=== PATIENT | male | born 1955 ===

== ENCOUNTER 2016-08-30 16:44 | Emergency (ER) | payer OTHER ==
[2016-08-30 17:48] VITALS: BP 140/58
--- NOTE | 2016-08-30 17:51 | UC ---
Lower Extremity/Ankle HPI - HPI Summary HPI Summary: pt presents with c/o right lower leg swelling and tenderness. Pt reports that on 08/25/16 he was stacking wood and a large log rolled down from ~ 6 feet above him and knocked him over, rolled from his lower extremity to his abdomen. Pt was wearing long pants, shirt and work boots. Pt reports that right lower extremity has become increasingly tender and swollen. pt has been applying ice and elevating as able. also c/o of erythematous circular blistered area on right medial anterior corbett. - History of Current Complaint Stated Complaint: RIGHT FOOT INJURY Time Seen by Provider: 08/30/16 17:37 Hx Obtained From: Patient Onset/Duration: Gradual Onset, Lasting Days - 5 Severity Initially: Mild Severity Currently: Moderate Aggravating Factor(s): Standing, Ambulation Alleviating Factor(s): Rest, Elevation, Ice Able to Bear Weight: Yes - minimal - Risk Factors Gout Risk Factors: Age Over 40, Male - Allergies/Home Medications Allergies/Adverse Reactions: Allergies Allergy/AdvReac Type Severity Reaction Status Date / Time No Known Allergies Allergy Verified 08/30/16 17:48 Home Medications: Home Medications Atorvastatin* [Lipitor 40 MG*] 40 mg PO 1700 08/30/16 [History Confirmed ] Clopidogrel TAB* [Plavix TAB*] 75 mg PO DAILY 08/30/16 [History Confirmed ] Lisinopril TAB* [Prinivil TAB 5 MG*] 5 mg PO DAILY 08/30/16 [History Confirmed 08/30/16] PMH/Surg Hx/FS Hx/Imm Hx Previously Healthy: Yes Endocrine History: Dyslipidemia Cardiovascular History: Hypertension - Surgical History Surgical History: Yes Surgery Procedure, Year, and Place: Cardiac Stents 08/2015 - Family History Known Family History: Positive: Other - positive [facility] for ankle injury - Social History Lives: With Family Alcohol Use: Rare Substance Use Type: None Smoking Status (MU): Former Smoker - Immunization History Most Recent Pneumonia Vaccination: 3 years ago Review of Systems Constitutional: Negative Skin: Other - erythema and blister, Eyes: Negative ENT: Negative Respiratory: Negative Cardiovascular: Negative Gastrointestinal: Negative Genitourinary: Negative Motor: Negative Neurovascular: Negative Musculoskeletal: Arthralgia, Decreased ROM, Edema, Myalgia - right ankle Neurological: Negative Psychological: Negative All Other Systems Reviewed And Are Negative: Yes Physical Exam Triage Information Reviewed: Yes Appearance: Well-Appearing Vital Signs: Initial Vital Signs Temp 98.1 F 08/30/16 17:42 Pulse 74 08/30/16 17:42 Resp 16 08/30/16 17:42 BP 140/58 08/30/16 17:42 Pulse Ox 99 08/30/16 17:42 Vital Signs Reviewed: Yes Eye Exam: Normal Neck exam: Normal Respiratory Exam: Normal Musculoskeletal Exam: Other - right ankle Musculoskeletal: Positive: ROM Limited @, Edema @ Neurological Exam: Normal Psychological Exam: Normal Skin Exam: Other - erythematous, circular ~ 2 cm diameter with clear filled blister. right medial lower extremity Lower Extremity Course/Dx - Differential Dx/Diagnosis Differential Diagnosis/HQI/PQRI: Fracture (Closed), Sprain Provider Diagnoses: IMPRESSION: 1. NONDISPLACED FRACTURE OF MEDIAL MALLEOLUS WITH ARTICULAR EXTENSION. 2. SOFT TISSUE SWELLING. 3. OSTEOARTHRITIS OF THE FIRST MTP JOINT. Cellulitis Discharge - Discharge Plan Condition: Stable Disposition: HOME Prescriptions: Cephalexin CAP* [Keflex 500 CAP*] 500 mg PO Q12H #14 cap Patient Education Materials: Ankle Fracture (ED), Cellulitis (ED) Referrals: Yamilex Carter MD [Medical Doctor] - Harvinder Olivarez MD [Primary Care Provider] - Additional Instructions: IMPRESSION: 1. NONDISPLACED FRACTURE OF MEDIAL MALLEOLUS WITH ARTICULAR EXTENSION. 2. SOFT TISSUE SWELLING. 3. OSTEOARTHRITIS OF THE FIRST MTP JOINT Please follow up with Dr. Carter tomorrow. Please remain non weight bearing on the affected ankle. Also, elevate your right lower extremity above the level of your heart as frequently as possible.
--- NOTE | 2016-08-30 18:21 | RAD ---
HISTORY: Subacute trauma to the right ankle and right foot COMPARISONS: None VIEWS: 6, Frontal, lateral, and oblique views of the right ankle and of the right foot FINDINGS: BONE DENSITY: Normal. BONES: There is a nondisplaced fracture of the medial malleolus with articular extension. The tibiofibular interval is normal. There are calcaneal enthesophytes enthesophytes of the base of the fifth metatarsal. JOINTS: There is osteoarthritis of the first MTP joint. ALIGNMENT: There is no dislocation. SOFT TISSUES: There is soft tissue swelling of the forefoot OTHER FINDINGS: None. IMPRESSION: 1. NONDISPLACED FRACTURE OF MEDIAL MALLEOLUS WITH ARTICULAR EXTENSION. 2. SOFT TISSUE SWELLING. 3. OSTEOARTHRITIS OF THE FIRST MTP JOINT
[2016-08-30] MEDS ORDERED: Cephalexin CAP* 500 MG PO ONE (18:38)
== END 2016-08-30 19:07 | disposition home or self-care (01) ==
LOC: UCCORT 16:44
DX: S82.54XA Nondisplaced fracture of medial malleolus of right tibia, initial encounter for closed fracture (principal); W22.8XXA Striking against or struck by other objects, initial encounter; Y93.89 Activity, other specified; Y92.9 Unspecified place or not applicable; M19.071 Primary osteoarthritis, right ankle and foot; L03.115 Cellulitis of right lower limb; E78.5 Hyperlipidemia, unspecified; I10 Essential (primary) hypertension; Z95.5 Presence of coronary angioplasty implant and graft; Z87.891 Personal history of nicotine dependence
CPT/HCPCS: 99213; A9270-GY; G0463

== ENCOUNTER 2017-07-05 17:02 | Emergency (ER) | payer OTHER ==
[2017-07-05 17:16] VITALS: BP 134/78
--- NOTE | 2017-07-05 20:16 | UC ---
Sterling Carson Natalie, scribed for Kam Salvador MD on 07/05/17 at 1746 . Skin Complaint HPI - HPI Summary HPI Summary: The patient is a 25 y/o M presenting to [facility] c/o induration on left sole which has been there for about 3 months. He states the sore is not an open wound; it looks more like a callus. The sore is not painful with shoes on, but is painful with bare feet, rated 8/10 in severity. He additionally c/o an induration with redness to the left outer thigh for the last couple of days. PMHx of psoriasis to bilateral legs. - History of Current Complaint Chief Complaint: UCWounds Time Seen by Provider: 07/05/17 17:23 Stated Complaint: SORE ON LEFT FOOT Hx Obtained From: Patient Onset/Duration: Gradual Onset, Lasting Weeks - started 3 months ago, Still Present Skin Exposure Onset/Duration: Weeks Ago Onset Severity: Moderate Current Severity: Moderate Pain Intensity: 8 Pain Scale Used: 0-10 Numeric Location: Discrete, Foot (Left) - sore on bottom of foot Character: Pain - sharp Aggravating Factor(s): Other - bare feet Alleviating Factor(s): Other - wearing shoes - Allergy/Home Medications Allergies/Adverse Reactions: Allergies Allergy/AdvReac Type Severity Reaction Status Date / Time No Known Allergies Allergy Verified 07/05/17 17:16 Home Medications: Home Medications Aspirin 81 mg CHEW TAB* [Aspirin Low Dose TAB*] 81 mg PO DAILY 07/05/17 [ History Confirmed 07/05/17] Multivitamin [Multivitamins] 1 cap PO 07/05/17 [History] Review of Systems Constitutional: Other - NEGATIVE: fever Skin: Other - induration on left sole, induration with redness on left thigh All Other Systems Reviewed And Are Negative: Yes PMH/Surg Hx/FS Hx/Imm Hx Other Endocrine History: psoriasis on bilateral lower extremeties Other Cardiovascular History: NEGATIVE: HTN, COPD - Surgical History Surgical History: Yes Surgery Procedure, Year, and Place: Cardiac Stents 08/2015 - Family History Known Family History: Positive: Other - positive [facility] for ankle injury - Social History Alcohol Use: Weekly Substance Use Type: None Smoking Status (MU): Former Smoker - Immunization History Most Recent Pneumonia Vaccination: 3 years ago Physical Exam - Summary Physical Exam Summary: VITAL SIGNS: Reviewed. GENERAL: Patient is a well-developed and nourished male who is lying comfortable in the stretcher. Patient is not in any acute respiratory distress. HEAD AND FACE: Normocephalic EYES: PERRLA, EOMI x 2. EARS: Hearing grossly intact. MOUTH: Oropharynx within normal limits. NECK: Supple, trachea is midline, no adenopathy, no JVD, no carotid bruit. CHEST: Symmetric, no tenderness at palpation LUNGS: Clear to auscultation bilaterally. No wheezing or crackles. CVS: Regular rate and rhythm, S1 and S2 present, no murmurs or gallops appreciated. ABDOMEN: Soft, non-tender. Bowel sounds are normal. No abdominal abnormal pulsations. EXTREMITIES: Full ROM in all major joints, no edema, no cyanosis or clubbing. NEURO: Alert and oriented x 3. No acute neurological deficits. Speech is normal and follows commands. SKIN: Dry and warm. Multiple patches of erythema and scaling that is possible secondary to patient's psoriasis. On the left foot in the plantar area, there is an induration of the sole, approximately 1x2 cm in size. Induration on proximal aspect of left thigh has positive erythema. Triage Information Reviewed: Yes Vital Signs: Initial Vital Signs Temp 98.1 F 07/05/17 17:09 Pulse 81 07/05/17 17:09 Resp 18 07/05/17 17:09 BP 134/78 07/05/17 17:09 Pulse Ox 97 07/05/17 17:09 Vital Signs Reviewed: Yes Course/Dx - Course Course Of Treatment: The patient is a 25 y/o M presenting to [facility] c/o induration on left sole which has been there for about 3 months. He states the sore is not an open wound; it looks more like a callus. The sore is not painful with shoes on, but is painful with bare feet, rated 8/10 in severity. He additionally c/o an induration with redness to the left outer thigh for the last couple of days. PMHx of psoriasis to bilateral legs. The patient was found to have increased BP in UC. The patient will follow up with PCP for better control of BP. I believe there is cellulitis on the left thight, for which the patient will be given Keflex. I believe the would on the left sole is a plantar wart, which will be treated with salicylic acid. The patient will be discharged home. I discussed all the findings and test results with the patient. Patient was instructed to return to the urgent care or go to ER immediately if any of the symptoms return or worsens. Plan of care was discussed with the patient, and patient understands and agrees. All questions were answered to patient satisfaction. There were no further complaints or concerns. - Diagnoses Provider Diagnoses: cellulitis, plantar wart Discharge - Sign-Out/Discharge Documenting (check all that apply): Discharge/Admit/Transfer - Discharge Plan Condition: Stable Disposition: HOME Prescriptions: Cephalexin CAP* [Keflex CAP*] 500 mg PO QID #40 cap Salicylic Acid [Compound W] 17 % EX DAILY #1 bottle Patient Education Materials: Plantar Wart (ED), Cellulitis (ED) Referrals: Harvinder Olivarez MD [Primary Care Provider] - Additional Instructions: Take medications as instructed Increase your fluid intake Return to the UC if symptoms worsen - Billing Disposition and Condition Condition: STABLE Disposition: HOME The documentation as recorded by the Sterling mancuso Natalie accurately reflects the service I personally performed and the decisions made by me, Kam Salvador MD.
== END 2017-07-05 17:56 | disposition home or self-care (01) ==
LOC: UCEAST 17:02
DX: L03.116 Cellulitis of left lower limb (principal); B07.0 Plantar wart; L40.9 Psoriasis, unspecified; Z79.82 Long term (current) use of aspirin; Z95.5 Presence of coronary angioplasty implant and graft; Z87.891 Personal history of nicotine dependence
CPT/HCPCS: 99212; G0463